=== PATIENT | female | born 1955 | race Caucasian/White ===

== ENCOUNTER 2019-01-27 20:36 | Emergency (ER) | payer MEDICAID ==
[~2019-01-27] VITALS: Ht 154.9 cm; Wt 62.0 kg
[2019-01-27 21:28] LABS: BASOPHILS % 0.4 % (0.0-2.0); EOSINOPHILS % 3.2 % (0.0-5.0); HEMATOCRIT. 35.9 % (36.0-48.0); MEAN CORPUSCULAR HEMOGLOBIN 26.9 pg (28.0-32.0); MEAN CORPUSCULAR VOLUME 80.7 fL (81.0-99.0); MEAN PLATELET VOLUME 9.7 fl (7.4-10.4); MONOCYTES % 7.6 % (2.0-8.0); NEUTROPHILS % 51.8 % (40.0-76.0); PLATELET 246 x1000/uL (130-400); RED BLOOD CELL COUNT 4.45 mill/uL (4.2-5.4); RED CELL DISTRIBUTION WIDTH 14.7 % (11.6-14.6)
[2019-01-27 21:31] LABS: CHLORIDE 107 mEq/L (98-107)
[2019-01-28 03:00] VITALS: BP 118/50
== END 2019-01-28 03:08 | disposition home or self-care (01) ==
LOC: ER 20:36 → CANBEDREQ 01-28 01:26 → ER 01-28 03:08
DX: E87.5 Hyperkalemia (principal); D64.9 Anemia, unspecified; F03.90 Unspecified dementia, unspecified severity, without behavioral disturbance, psychotic disturbance, mood disturbance, and anxiety
CPT/HCPCS: 36415; 71045; 80053; 83880; 84484; 85025; 93005; 99284; Z7610